=== PATIENT | male | born 1990 | race Caucasian/White ===

== ENCOUNTER → 2019-08-16 13:11 | Outpatient (CLI) | payer SELFPAY ==
[2019-08-16 16:25] LABS: NATERA MAILED SPECIMEN
== END ==
PROVIDERS: Family Provider Family Medicine; Referring Provider Nurse Practitioner Women's Health; Visit Provider Nurse Practitioner Women's Health
DX: Z31.440 Encounter of male for testing for genetic disease carrier status for procreative management (principal)